=== PATIENT | female | born 1950 | race Caucasian/White ===

== ENCOUNTER 2021-07-12 10:11 | Inpatient (IN) ==
[~2021-07-12 10:11] MED LIST: Heparin 1,000 UNIT/ML 10 ml (10,000 UNITS) CATHLAB/DIALYSIS ONE; Heparin 2 UNITS/ML 1000 mls 2,000 ML IV ONE
[2021-07-12] MEDS ORDERED: Iohexol 350 (CONTRAST) 200 ML MDV IV ONE (10:12)
[2021-07-12] MEDS ORDERED: VERAPAMIL 2.5 MG/ML 2 ML VIAL ** 5 mg/2 ml ONE (10:15)
[2021-07-12] MEDS ORDERED: Heparin 2 UNITS/ML 1000 mls IV ONE (10:15)
[2021-07-12] MEDS ORDERED: nitroGLYCERIN DRIP 100 MCG/ML 250 ML BTL ONE (10:15)
[2021-07-12] MEDS ORDERED: Heparin 1,000 UNIT/ML 10 ml (10,000 UNITS) CATHLAB/DIALYSIS ONE (10:15)
[2021-07-12] MEDS ORDERED: Iohexol 350 (CONTRAST) 100 ML PAK IV ONE (10:15)
[2021-07-12] MEDS ORDERED: Lidocaine 1% VIAL 10 MG/ML VIAL ONE (10:15)
[2021-07-12] MEDS ORDERED: Heparin DRIP 25,000 UNITS BAG 25,000 UNITS/500 ML BAG ONE (10:18)
[2021-07-12] MEDS ORDERED: Aspirin EC 81 mg TAB.EC (enteric coated) ONE (10:21)
[2021-07-12] MEDS ORDERED: Midazolam 5 mg/5 ml VIAL 1 mg/ml 5 ml VIAL (5 mg) ONE (10:27)
[2021-07-12] MEDS ORDERED: fentaNYL 100 mcg/2 ml 50 MCG/ML VIAL ONE (10:27)
[2021-07-12] MEDS ORDERED: Bivalirudin 250 MG VIAL ONE (10:27)
[2021-07-12 10:32] LABS: ABS Eosinophils 0.2 10^3/ul (0-0.6); ABS Lymphocytes 1.8 10^3/ul (1.0-4.8); ABS Monocytes 0.6 10^3/ul (0-0.8); ABS Neutrophils 4.2 10^3/ul (1.5-7.7); Eosinophil % 3.2 %; Hematocrit 45 % (35-47); Hemoglobin 15.3 g/dL (12.0-16.0); Lymphocyte % 26.2 %; Mean Corpuscular HGB Conc 34 g/dL (31-36); Mean Corpuscular Hemoglobin 32 pg (27-31); Mean Corpuscular Volume 93 fL (80-97); Mean Platelet Volume 8.5 fL (7.4-10.4); Platelet Count 201 10^3/uL (150-450); Red Blood Count 4.83 10^6 /uL (3.70-4.87); Red Cell Distribution Width 15 % (10-15); White Blood Count 6.8 10^3/uL (3.5-10.8)
[2021-07-12] MEDS ORDERED: Heparin - STEMI 5,000 UNITS/ML 1 ml VIAL IV ONE (10:44)
[2021-07-12 10:48] LABS: ALT 29 U/L (7-52); AST 37 U/L (13-39); Albumin/Globulin Ratio 1.3 (1-3); Alkaline Phosphatase 157 U/L (35-149); Anion Gap 5 mmol/L (2-11); Blood Urea Nitrogen 25 mg/dL (6-24); CO2 Carbon Dioxide 31 mmol/L (22-32); Calcium 9.8 mg/dL (8.6-10.3); Chloride 102 mmol/L (101-111); Globulin 3.2 g/dL (2-4); Glucose 94 mg/dL (70-100); LDL Cholesterol Direct 153 mg/dL; Potassium 4.3 mmol/L (3.5-5.0); Sodium 138 mmol/L (135-145); Total Protein 7.2 g/dL (6.4-8.9)
[2021-07-12 10:53] LABS: INR 0.94 (0.86-1.15)
[2021-07-12] MEDS ORDERED: Magnesium Sulfate 2 gm BAG 2 GM/50 ML BAG ONE (10:57)
[2021-07-12 11:03] LABS: Troponin I 0.07 ng/mL (<0.03)
[2021-07-12] MEDS ORDERED: Amiodarone IV 150 mg/3 ml VIAL ONE (11:03)
[2021-07-12 11:22] LABS: Rapid COVID-19 Molecular Undetected (Undetected)
[2021-07-12] MEDS ORDERED: NS 0.9% 1000 ml BAG 1,000 ML IV SCH (11:30)
[2021-07-12 13:05] LABS: Troponin I 0.49 ng/mL (<0.03)
[2021-07-12] MEDS ORDERED: Albuterol HFA INHALER 8 gm MDI INH PRN (14:07)
[2021-07-12 20:03] LABS: Troponin I 3.99 ng/mL (<0.03)
[2021-07-13 00:22] LABS: Troponin I 4.69 ng/mL (<0.03)
[2021-07-13 05:51] LABS: ABS Eosinophils 0.1 10^3/ul (0-0.6); ABS Lymphocytes 1.2 10^3/ul (1.0-4.8); ABS Monocytes 0.5 10^3/ul (0-0.8); Eosinophil % 1.2 %; Hematocrit 42 % (35-47); Hemoglobin 14.5 g/dL (12.0-16.0); Lymphocyte % 17.1 %; Mean Corpuscular HGB Conc 34 g/dL (31-36); Mean Corpuscular Hemoglobin 31 pg (27-31); Mean Corpuscular Volume 91 fL (80-97); Mean Platelet Volume 8.3 fL (7.4-10.4); Platelet Count 172 10^3/uL (150-450); Red Blood Count 4.61 10^6 /uL (3.70-4.87); Red Cell Distribution Width 15 % (10-15); White Blood Count 6.8 10^3/uL (3.5-10.8)
[2021-07-13 06:14] LABS: Anion Gap 6 mmol/L (2-11); Blood Urea Nitrogen 13 mg/dL (6-24); CO2 Carbon Dioxide 26 mmol/L (22-32); Calcium 8.4 mg/dL (8.6-10.3); Chloride 107 mmol/L (101-111); Cholesterol 186 mg/dL; Glucose 91 mg/dL (70-100); HDL Cholesterol 40.8 mg/dL; LDL Cholesterol 122 mg/dL; Potassium 3.6 mmol/L (3.5-5.0); Sodium 139 mmol/L (135-145); Triglycerides 116 mg/dL
[2021-07-13] MEDS ORDERED: Perflutren Lipid Microsphere 3 ML VIAL ONE (08:37)
[2021-07-13 09:37] LABS: Troponin I 4.82 ng/mL (<0.03)
[2021-07-13] MEDS: Mometasone/Formoter 200/5 MDI INH SCH ×2 (10:44→20:22)
[2021-07-13] MEDS: SPIRIVA Respimat (tiotropium) 2.5 mcg/inh Inhaler INH SCH (10:44)
[2021-07-14] MEDS: Mometasone/Formoter 200/5 MDI INH SCH (07:39)
[2021-07-14] MEDS: SPIRIVA Respimat (tiotropium) 2.5 mcg/inh Inhaler INH SCH (07:39)
[2021-07-14 15:51] VITALS: BP 132/76
== END 2021-07-14 16:50 | disposition home or self-care (01) | DRG 247 ==
LOC: ED 10:11 → CHICATH 10:21 → ICU 14:39 → SUATTDRO 14:39 → MEDTELE 07-13 17:07
PROVIDERS: ATTEND Pediatrics